=== PATIENT | female | born 1950 | race Two or more races ===

== ENCOUNTER 2022-09-10 10:36 | Outpatient (CLI) | payer OTHER | END 2022-09-10 10:42 | disposition home or self-care (01) | LOC: TOM 10:36 | PROVIDERS: ATTEND Internal Medicine Gastroenterology | DX: K63.5 Polyp of colon (principal); K56.609 Unspecified intestinal obstruction, unspecified as to partial versus complete obstruction ==

== ENCOUNTER 2022-09-17 09:48 | Outpatient (CLI) | payer OTHER | END 2022-09-17 10:02 | disposition home or self-care (01) | LOC: RX STUDY 09:48 | PROVIDERS: ATTEND Internal Medicine Gastroenterology | DX: K21.9 Gastro-esophageal reflux disease without esophagitis (principal); K21.00 Gastro-esophageal reflux disease with esophagitis, without bleeding ==